=== PATIENT | female | born 2000 | race Caucasian/White ===

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

== ENCOUNTER → 2018-05-06 | Outpatient (REF) | payer OTHER ==
[~2018-05-06] MED LIST changes: +LORA10TA3 PO
== END ==
LOC: M LAB REF 15:30
PROVIDERS: ATTEND Physician Assistant
DX: J02.9 Acute pharyngitis, unspecified (principal)

== ENCOUNTER → 2018-05-07 | Outpatient (CLI) | payer OTHER ==
[2018-05-07 18:42] LABS: BASO % 0.5 % (0.0-1.0); EOS # 0.1 10^3/uL (0.0-0.50); EOS % 0.7 % (0.0-3.0); HEMATOCRIT 46.4 % (36.0-47.0); HEMOGLOBIN 14.9 g/dl (12.0-15.5); LYMPH # 1.9 10^3/uL (1.5-6.5); LYMPH % 25.8 % (24.0-44.0); MEAN CORPUSCULAR HEMOGLOBIN 27.4 pg (27.0-33.0); MEAN CORPUSCULAR HGB CONC 32.1 g/dl (32.0-36.5); MEAN CORPUSCULAR VOLUME 85.3 fl (80.0-96.0); MONO % 13.5 % (0.0-5.0); NEUTROPHILS # 4.3 10^3/uL (1.8-7.7); NEUTROPHILS % 59.2 % (36.0-66.0); PLATELET COUNT, AUTOMATED 219 10^3/uL (150-450); RED BLOOD COUNT 5.44 10^6/uL (4.00-5.40); WHITE BLOOD COUNT 7.3 10^3/uL (4.0-10.0)
[2018-05-10 00:07] LABS: EBV VIRAL CAPSID AG IgG >600.0 U/mL (0.0-17.9); EBV VIRAL CAPSID AG IgM <36.0 U/mL (0.0-35.9)
== END ==
LOC: M WUC 10:55
PROVIDERS: ATTEND Physician Assistant
DX: R53.83 Other fatigue (principal)

== ENCOUNTER → 2019-01-31 | Outpatient (REF) | payer OTHER | LOC: M LAB REF 09:22 | PROVIDERS: ATTEND Physician Assistant | DX: J02.9 Acute pharyngitis, unspecified (principal) ==

== ENCOUNTER 2019-05-19 18:26 | Emergency (ER) | payer OTHER ==
[~2019-05-19] VITALS: Ht 170.2 cm; Wt 93.3 kg
[2019-05-19 19:49] LABS: BASO # 0.1 10^3/uL (0.0-0.2); BASO % 0.5 % (0.0-1.0); EOS # 0.4 10^3/uL (0.0-0.5); EOS % 3.5 % (0.0-3.0); HEMATOCRIT 44.9 % (36.0-47.0); HEMOGLOBIN 15.5 g/dl (12.0-15.5); LYMPH # 4.3 10^3/uL (1.5-5.0); LYMPH % 34.7 % (24.0-44.0); MEAN CORPUSCULAR HEMOGLOBIN 28.6 pg (27.0-33.0); MEAN CORPUSCULAR HGB CONC 34.5 g/dl (32.0-36.5); MEAN CORPUSCULAR VOLUME 82.8 fl (80.0-96.0); MONO # 0.8 10^3/uL (0.0-0.8); MONO % 6.5 % (0.0-5.0); NEUTROPHILS # 6.8 10^3/uL (1.5-8.5); NEUTROPHILS % 54.5 % (36.0-66.0); PLATELET COUNT, AUTOMATED 330 10^3/uL (150-450); RED BLOOD COUNT 5.42 10^6/uL (4.00-5.40); WHITE BLOOD COUNT 12.5 10^3/uL (4.0-10.0)
[2019-05-19 20:50] LABS: HCG, SERUM QUALITATIVE NEGATIVE (NEGATIVE)
[2019-05-19 20:51] LABS: ALBUMIN 3.8 GM/DL (3.2-5.2); ALT/SGPT 55 U/L (12-78); BILIRUBIN,DIRECT 0.1 MG/DL (0.0-0.2); BILIRUBIN,TOTAL 0.6 MG/DL (0.2-1.0); BLOOD UREA NITROGEN 13 MG/DL (7-18); CALCIUM LEVEL 9.2 MG/DL (8.5-10.1); CARBON DIOXIDE LEVEL 28 MEQ/L (21-32); CHLORIDE LEVEL 107 MEQ/L (98-107); CREATININE FOR GFR 1.03 MG/DL (0.55-1.30); GLUCOSE, FASTING 69 MG/DL (70-100); LIPASE 169 U/L (73-393); POTASSIUM SERUM 4.2 MEQ/L (3.5-5.1); SODIUM LEVEL 141 MEQ/L (136-145); TOTAL PROTEIN 7.5 GM/DL (6.4-8.2)
[2019-05-19] MEDS ORDERED: ISOVUE-370 76% 100ML VIAL (Q9967) As Ordered ONE (21:30)
--- NOTE | 2019-05-19 22:09 | REPVR ---
PROCEDURE INFORMATION: Exam: CT Abdomen And Pelvis With Contrast Exam date and time: 05/19/2019 9:38 PM Age: 18 years old Clinical indication: Abdominal pain; Flank; Right lower quadrant (rlq); Additional info: Rlq pain TECHNIQUE: Imaging protocol: Computed tomography of the abdomen and pelvis with intravenous contrast. Axial, coronal and sagittal reformatted images were created and reviewed. Radiation optimization: All CT scans at this facility use at least one of these dose optimization techniques: automated exposure control; mA and/or kV adjustment per patient size (includes targeted exams where dose is matched to clinical indication); or iterative reconstruction. Contrast material: ISOVUE 370; Contrast volume: 100 ml; Contrast route: IV; COMPARISON: No relevant prior studies available. FINDINGS: Liver: Mild hepatomegaly. Diffuse hepatic steatosis. Gallbladder and bile ducts: No radiodense gallstones. No biliary ductal dilatation. Pancreas: Unremarkable. Spleen: Unremarkable. Adrenals: Unremarkable. Kidneys and ureters: No mass. No radiodense calculi. No hydronephrosis. Stomach and bowel: No bowel wall thickening. No obstruction. No pneumatosis. Appendix: Normal. Intraperitoneal space: Trace nonspecific free pelvic fluid, likely physiologic. No organized fluid collection. No free air. Vasculature: Unremarkable. No aneurysm. Lymph nodes: Small mesenteric lymph nodes, nonspecific in appearance. No pathologically enlarged lymph nodes. Bladder: Unremarkable. Reproductive: Unremarkable. Bones/joints: No acute osseous abnormality. Soft tissues: Unremarkable. IMPRESSION: 1. No CT evidence of acute intra-abdominal or pelvic pathology. 2. Additional findings, as above. Electronically signed by: Fred Yadav On 05/19/2019 22:09:10 PM
[2019-05-19] MEDS ORDERED: ONDA4TAB6 PO (22:25)
[2019-05-19 22:41] VITALS: BP 120/85
== END 2019-05-19 22:55 | disposition home or self-care (01) ==
LOC: M ED 18:26
DX: R10.31 Right lower quadrant pain (principal); F17.290 Nicotine dependence, other tobacco product, uncomplicated; J30.89 Other allergic rhinitis; Z91.040 Latex allergy status
CPT/HCPCS: 74177; 80048; 80076; 81001; 83690; 84703; 85025; 99284; Q9967

== ENCOUNTER → 2020-02-26 | Outpatient (REF) | payer OTHER ==
[~2020-02-26] MED LIST changes: +ONDA4TAB6 PO
== END ==
LOC: M SFHCWAGY 12:55
PROVIDERS: ATTEND Nurse Practitioner Women's Health
DX: Z11.3 Encounter for screening for infections with a predominantly sexual mode of transmission (principal); Z12.4 Encounter for screening for malignant neoplasm of cervix

== ENCOUNTER → 2020-09-25 | Outpatient (REF) | payer OTHER ==
[~2020-09-25] MED LIST changes: -CLIN150C14 PO; +CLIN150C15 PO
[2020-09-25 18:39] LABS: GC DNA AMPLIFICATION NEGATIVE (NEGATIVE)
== END ==
LOC: M SFHCWAGY 12:53
PROVIDERS: ATTEND Nurse Practitioner Women's Health
DX: Z11.3 Encounter for screening for infections with a predominantly sexual mode of transmission (principal)

== ENCOUNTER → 2021-01-14 | Outpatient (CLI) | payer OTHER ==
[~2021-01-14] MED LIST changes: -CLIN150C15 PO; +CLIN150C17 PO
[2021-01-14 16:02] LABS: LUTEINIZING HORMONE 4.4 mIU/mL; PROLACTIN 10.2 NG/ML; THYROID STIMULATING HORMONE 1.59 uIU/ML (0.358-3.740)
[2021-01-14 16:03] LABS: FOLLICLE STIMULATING HORMONE 7.5 mIU/mL
== END ==
LOC: M PLALAB 11:30
PROVIDERS: ATTEND Nurse Practitioner Women's Health
DX: N97.0 Female infertility associated with anovulation (principal)

== ENCOUNTER → 2021-01-21 | Outpatient (CLI) | payer OTHER ==
--- NOTE | 2021-01-21 10:14 | REP ---
INDICATION: INFERTILITY COMPARISON: None. TECHNIQUE: Transabdominal pelvic ultrasound followed by transvaginal examination for better evaluation of the endometrium and adnexa with color Doppler evaluation of the ovaries. FINDINGS: Bladder is unremarkable and measures 9.4 x 9.5 x 9.7 cm. Septated anteverted uterus measures 6.0 x 3.6 x 4.9 cm. The endometrial complex measures 8.5 mm thickness. Few small nabothian cysts are identified. Bilateral ovaries demonstrate multiple follicles measuring up to 11 mm on the right and 10 mm on the left. Right ovary measures 4.2 x 2.8 x 3.4 cm; R I = 0.60. Left ovary measures 3.3 x 2.6 x 3.8 cm; R I = 0.70. No pelvic fluid or adnexal mass lesion. IMPRESSION: Uterus has a septated appearance and is otherwise normal by ultrasound evaluation. Bilateral primarily subcentimeter follicles noted. <Electronically signed by Rodolfo Flood > 01/21/21 1011
== END ==
LOC: M WHC 07:33
PROVIDERS: ATTEND Nurse Practitioner Women's Health
DX: N97.0 Female infertility associated with anovulation (principal)

== ENCOUNTER → 2021-03-18 | Outpatient (REF) | payer OTHER ==
[2021-03-18 23:19] LABS: GC DNA AMPLIFICATION NEGATIVE (NEGATIVE)
== END ==
LOC: M SFHCWAGY 16:45
PROVIDERS: ATTEND Obstetrics & Gynecology
DX: Z12.4 Encounter for screening for malignant neoplasm of cervix (principal); Z11.3 Encounter for screening for infections with a predominantly sexual mode of transmission

== ENCOUNTER → 2022-07-13 | Outpatient (REF) | payer OTHER ==
[~2022-07-13] MED LIST changes: -MICR1TAB16 PO; +NORE1TAB86 PO
[2022-07-14 12:46] LABS: GC DNA AMPLIFICATION NEGATIVE (NEGATIVE)
== END ==
LOC: M PLALAB 11:52
PROVIDERS: ATTEND Obstetrics & Gynecology
DX: Z12.4 Encounter for screening for malignant neoplasm of cervix (principal)

== ENCOUNTER → 2022-10-22 | Outpatient (CLI) | payer OTHER | LOC: M LAB 10:34 | PROVIDERS: ATTEND Physician Assistant | DX: Z34.91 Encounter for supervision of normal pregnancy, unspecified, first trimester (principal) ==

== ENCOUNTER → 2022-12-16 | Outpatient (CLI) | payer OTHER ==
[2022-12-16 13:50] LABS: HEMATOCRIT 44.1 % (36.0-47.0); HEMOGLOBIN 15.1 g/dl (12.0-15.5); MEAN CORPUSCULAR HEMOGLOBIN 28.9 pg (27.0-33.0); MEAN CORPUSCULAR HGB CONC 34.2 g/dl (32.0-36.5); MEAN CORPUSCULAR VOLUME 84.5 fl (80.0-96.0); PLATELET COUNT, AUTOMATED 263 10^3/uL (150-450); RED BLOOD COUNT 5.22 10^6/uL (4.00-5.40); WHITE BLOOD COUNT 8.2 10^3/uL (4.0-10.0)
[2022-12-16 14:46] LABS: HIV 1&2 SCREEN NEGATIVE (NEGATIVE)
[2022-12-16 14:54] LABS: HEPATITIS C VIRUS ABY INDEX 0.04 INDEX (<0.8)
[2022-12-16 15:01] LABS: GC DNA AMPLIFICATION NEGATIVE (NEGATIVE)
== END ==
LOC: M PLALAB 08:59
PROVIDERS: ATTEND Advanced Practice Midwife
DX: Z34.81 Encounter for supervision of other normal pregnancy, first trimester (principal)

== ENCOUNTER → 2022-12-16 | Outpatient (REF) | payer OTHER | LOC: M PLALAB 08:21 | PROVIDERS: ATTEND Advanced Practice Midwife | DX: Z34.81 Encounter for supervision of other normal pregnancy, first trimester (principal) ==

== ENCOUNTER → 2023-02-01 | Outpatient (CLI) | payer OTHER | LOC: M WHC 14:33 | PROVIDERS: ATTEND Advanced Practice Midwife | DX: Z34.82 Encounter for supervision of other normal pregnancy, second trimester (principal); Z3A.19 19 weeks gestation of pregnancy ==

== ENCOUNTER → 2023-02-18 | Outpatient (CLI) | payer OTHER | LOC: M WHC 14:58 | PROVIDERS: ATTEND Advanced Practice Midwife | DX: O32.1XX0 Maternal care for breech presentation, not applicable or unspecified (principal); Z3A.21 21 weeks gestation of pregnancy ==

== ENCOUNTER → 2023-03-16 | Outpatient (CLI) | payer OTHER ==
[2023-03-16 17:33] LABS: HEMATOCRIT 40.1 % (36.0-47.0); HEMOGLOBIN 13.4 g/dl (12.0-15.5); MEAN CORPUSCULAR HEMOGLOBIN 28.5 pg (27.0-33.0); MEAN CORPUSCULAR HGB CONC 33.4 g/dl (32.0-36.5); MEAN CORPUSCULAR VOLUME 85.3 fl (80.0-96.0); PLATELET COUNT, AUTOMATED 237 10^3/uL (150-450); WHITE BLOOD COUNT 11.7 10^3/uL (4.0-10.0)
[2023-03-16 19:43] LABS: CHLAMYDIA DNA AMPLIFICATION NEGATIVE (NEGATIVE); GC DNA AMPLIFICATION NEGATIVE (NEGATIVE)
== END ==
LOC: M PLALAB 14:18
PROVIDERS: ATTEND Advanced Practice Midwife
DX: Z34.82 Encounter for supervision of other normal pregnancy, second trimester (principal)

== ENCOUNTER → 2023-03-22 | Outpatient (REF) | payer OTHER | LOC: M LAB REF 19:58 | PROVIDERS: ATTEND Physician Assistant | DX: R30.0 Dysuria (principal) ==

== ENCOUNTER → 2023-03-25 | Outpatient (CLI) | payer OTHER | LOC: M WHC 13:49 | PROVIDERS: ATTEND Obstetrics & Gynecology | DX: Z34.82 Encounter for supervision of other normal pregnancy, second trimester (principal) ==

== ENCOUNTER 2023-04-02 15:38 | Outpatient (CLI) | payer OTHER ==
[~2023-04-02] VITALS: Ht 170.2 cm; Wt 102.8 kg
[2023-04-02 15:57] VITALS: BP 143/79
[2023-04-02] MEDS ORDERED: PRENTAB9 PO (15:59)
[2023-04-02 16:58] LABS: APPEARANCE, URINE CLOUDY (CLEAR); BACTERIA, URINE AUTO 1+ (NEGATIVE); BILIRUBIN, URINE AUTO NEGATIVE (NEGATIVE); BLOOD, URINE BLOOD NEGATIVE (NEGATIVE); CALCIUM OXALATE CRYSTALS SMALL; COLOR, URINE YELLOW (YELLOW); GLUCOSE, URINE (UA) AUTO NEGATIVE (NEGATIVE); KETONE, URINE AUTO TRACE mg/dL (NEGATIVE); LEUKOCYTE ESTERASE, URINE AUTO NEGATIVE (NEGATIVE); MUCUS, URINE SMALL (NEGATIVE); NITRITE, URINE AUTO NEGATIVE (NEGATIVE); PROTEIN, URINE AUTO 1+ mg/dL (NEGATIVE); RBC, URINE AUTO 0 /HPF (0-3); SPECIFIC GRAVITY URINE AUTO 1.032 (1.002-1.035); SQUAMOUS EPITHELIAL CELL UR AU 14 /HPF (0-6); WBC, URINE AUTO 0 /HPF (0-3)
[2023-04-02] MEDS ORDERED: MACR100C43 PO (17:24)
== END 2023-04-02 17:25 | disposition home or self-care (01) ==
LOC: M LDO 15:38
PROVIDERS: ATTEND Specialist
DX: O26.893 Other specified pregnancy related conditions, third trimester (principal); R35.0 Frequency of micturition; Z3A.28 28 weeks gestation of pregnancy
CPT/HCPCS: 59025; 81001; 87086; G0463

== ENCOUNTER → 2023-05-26 | Outpatient (REF) | payer OTHER ==
[~2023-05-26] MED LIST changes: +MACR100C43 PO; +PRENTAB9 PO
== END ==
LOC: M SFHCWAGY 16:48
PROVIDERS: ATTEND Obstetrics & Gynecology
DX: Z36.89 Encounter for other specified antenatal screening (principal); Z3A.00 Weeks of gestation of pregnancy not specified

== ENCOUNTER 2023-06-02 01:48 | Outpatient (CLI) | payer OTHER ==
[~2023-06-02] VITALS: Ht 170.2 cm; Wt 104.2 kg
[2023-06-02 02:13] VITALS: BP 121/68
[2023-06-02] MEDS ORDERED: ONDANSETRON 4MG 2ML VIAL As Ordered ONE (02:42)
[2023-06-02] MEDS: LR 1,000 ML IV ONE ×2 (02:43→03:00)
[2023-06-02] MEDS: ONDANSETRON 4MG 2ML VIAL IV ONE (02:46)
[2023-06-02 02:59] LABS: HEMATOCRIT 43.7 % (36.0-47.0); HEMOGLOBIN 15.1 g/dl (12.0-15.5); MEAN CORPUSCULAR HEMOGLOBIN 28.4 pg (27.0-33.0); MEAN CORPUSCULAR HGB CONC 34.6 g/dl (32.0-36.5); MEAN CORPUSCULAR VOLUME 82.3 fl (80.0-96.0); PLATELET COUNT, AUTOMATED 211 10^3/uL (150-450); RED BLOOD COUNT 5.31 10^6/uL (4.00-5.40); WHITE BLOOD COUNT 15.2 10^3/uL (4.0-10.0)
[2023-06-02 03:08] LABS: ALBUMIN 2.9 G/DL (3.2-5.2); ALKALINE PHOSPHATASE 129 U/L (46-116); ALT/SGPT 15 U/L (7.0-40); AST/SGOT 22 U/L (<34); BILIRUBIN,TOTAL 0.6 MG/DL (0.3-1.2); BLOOD UREA NITROGEN 8 MG/DL (9-23); CALCIUM LEVEL 9.5 MG/DL (8.5-10.1); CARBON DIOXIDE LEVEL 18 MMOL/L (20-31); CHLORIDE LEVEL 107 MMOL/L (98-107); GLOMERULAR FILTRATION RATE > 60.0 (>60); GLUCOSE, FASTING 98 MG/DL (60-100); POTASSIUM SERUM 4.1 MMOL/L (3.5-5.1); SODIUM LEVEL 136 MMOL/L (136-145); TOTAL PROTEIN 6.9 G/DL (5.7-8.2)
[2023-06-02 03:48] VITALS: BP 134/85
== END 2023-06-02 03:47 | disposition home or self-care (01) ==
LOC: M LDO 01:48
PROVIDERS: ATTEND Advanced Practice Midwife
DX: O26.893 Other specified pregnancy related conditions, third trimester (principal); R11.0 Nausea; R25.2 Cramp and spasm; Z3A.36 36 weeks gestation of pregnancy
CPT/HCPCS: 59025; 80053; 81001; 85027; 87086; 96374; G0463; J2405

== ENCOUNTER 2023-06-17 14:49 | Inpatient (IN) | payer OTHER ==
[~2023-06-17] VITALS: Ht 170.2 cm; Wt 105.0 kg
[2023-06-17 15:05] VITALS: BP 130/78
[2023-06-17] MEDS ORDERED: HOME MED LIST COMPLETE! XX SCH (15:10)
[2023-06-17] MEDS ORDERED: METHYLERGONOVINE MALEATE 0.2MG/ML 1ML VIAL IM PRN (16:00)
[2023-06-17] MEDS ORDERED: TRANEXAMIC ACID INJection 1,000 MG in NS 100 ML IV PRN (16:00)
[2023-06-17] MEDS ORDERED: CARBOPROST TROMETHAMINE 250 MCG/ML AMP IM PRN (16:00)
[2023-06-17] MEDS ORDERED: OXYTOCIN DRIP 30 UNITS in IV 1 EA IV PRN (16:00)
[2023-06-17] MEDS ORDERED: LIDOCAINE 1% MDV 20ML VIAL INFIL PRN (16:00)
[2023-06-17] MEDS ORDERED: LR 1,000 ML IV SCH (16:00)
[2023-06-17] MEDS ORDERED: LACTATED RINGER'S 1000 ML IV STA (16:00)
[2023-06-17 16:18] VITALS: BP 118/66
[2023-06-17 16:32] LABS: HEMATOCRIT 41.7 % (36.0-47.0); HEMOGLOBIN 14.3 g/dl (12.0-15.5); MEAN CORPUSCULAR HEMOGLOBIN 28.1 pg (27.0-33.0); MEAN CORPUSCULAR HGB CONC 34.3 g/dl (32.0-36.5); MEAN CORPUSCULAR VOLUME 81.9 fl (80.0-96.0); PLATELET COUNT, AUTOMATED 227 10^3/uL (150-450); RED BLOOD COUNT 5.09 10^6/uL (4.00-5.40); WHITE BLOOD COUNT 11.8 10^3/uL (4.0-10.0)
[2023-06-17 18:52] VITALS: BP 120/65
== END 2023-06-17 19:05 | disposition home or self-care (01) | DRG 566 ==
LOC: M LDI 14:49
PROVIDERS: ADMIT Advanced Practice Midwife; ATTEND Advanced Practice Midwife
DX: O36.8131 Decreased fetal movements, third trimester, fetus 1 (principal); Z3A.38 38 weeks gestation of pregnancy

== ENCOUNTER 2023-06-27 04:14 | Outpatient (CLI) | payer OTHER ==
[~2023-06-27] VITALS: Ht 170.2 cm; Wt 107.1 kg
[2023-06-27 04:26] VITALS: BP 136/79
[2023-06-27 06:34] VITALS: BP 125/74
== END 2023-06-27 06:31 | disposition home or self-care (01) ==
LOC: M LDO 04:14
PROVIDERS: ATTEND Obstetrics & Gynecology
DX: O47.1 False labor at or after 37 completed weeks of gestation (principal); Z3A.40 40 weeks gestation of pregnancy
CPT/HCPCS: 59025; 76815; G0463

== ENCOUNTER 2023-06-27 23:13 | Inpatient (IN) | payer OTHER ==
[~2023-06-27] VITALS: Ht 170.2 cm; Wt 106.0 kg
[2023-06-27 23:20] VITALS: BP 130/86
[2023-06-27] MEDS ORDERED: METHYLERGONOVINE MALEATE 0.2MG/ML 1ML VIAL IM PRN (23:35)
[2023-06-27] MEDS ORDERED: CARBOPROST TROMETHAMINE 250 MCG/ML AMP IM PRN (23:35)
[2023-06-27] MEDS ORDERED: OXYTOCIN INJ 10UNITS/ML 1ML VIAL IM PRN (23:35)
[2023-06-27] MEDS ORDERED: LIDOCAINE 1% MDV 20ML VIAL INFIL PRN (23:35)
[2023-06-27] MEDS ORDERED: TRANEXAMIC ACID INJection 1,000 MG in NS 100 ML IV PRN (23:35)
[2023-06-27] MEDS ORDERED: OXYTOCIN DRIP 30 UNITS in IV 1 EA IV PRN (23:35)
[2023-06-27] MEDS: LACTATED RINGER'S 1000 ML IV STA (23:54)
[2023-06-28] VITALS (58 sets, daily range): BP systolic 101–203; BP diastolic 54–105
[2023-06-28 00:10] LABS: HEMATOCRIT 42.5 % (36.0-47.0); HEMOGLOBIN 14.5 g/dl (12.0-15.5); MEAN CORPUSCULAR HEMOGLOBIN 28.1 pg (27.0-33.0); MEAN CORPUSCULAR HGB CONC 34.1 g/dl (32.0-36.5); MEAN CORPUSCULAR VOLUME 82.4 fl (80.0-96.0); PLATELET COUNT, AUTOMATED 219 10^3/uL (150-450); RED BLOOD COUNT 5.16 10^6/uL (4.00-5.40); WHITE BLOOD COUNT 13.2 10^3/uL (4.0-10.0)
[2023-06-28] MEDS ORDERED: ePHEDrine SULFATE 25 MG/5 ML(5MG/ML) SYRINGE IVP PRN (00:35)
[2023-06-28] MEDS ORDERED: EPIDURAL/PCA KEYS XX PRN (00:35)
[2023-06-28] MEDS ORDERED: NALOXONE INJ 0.4MG/1ML VIAL IV PRN (00:35)
[2023-06-28] MEDS ORDERED: diphenhydrAMINE 50MG/ML VIAL IV PRN (00:35)
[2023-06-28] MEDS ORDERED: LR 500 ML IV PRN (00:35)
[2023-06-28] MEDS ORDERED: ONDANSETRON 4MG 2ML VIAL IV PRN (00:35)
[2023-06-28] MEDS: FENTANYL/ROPIVACAINE/NACL BAG 100 ML EPIDURAL SCH (00:56)
[2023-06-28] MEDS: LR 1,000 ML IV SCH (01:19)
[2023-06-28] MEDS: OXYTOCIN DRIP 30 UNITS in IV 1 EA IV SCH ×2 (08:22→19:50)
[2023-06-28] MEDS ORDERED: IBUPROFEN 600MG TAB PO PRN (19:50)
[2023-06-28] MEDS ORDERED: ANUSOL HC CREAM 30GM TOP PRN (19:50)
[2023-06-28] MEDS ORDERED: METHYLERGONOVINE MALEATE 0.2 MG TAB PO PRN (19:50)
[2023-06-28] MEDS ORDERED: RHO(D) IMMUNE GLOBULIN/MALTOSE 500MCG(2500IU)/2.2ML VIAL (WINRHO) IM SCH (19:50)
[2023-06-28] MEDS ORDERED: ACETAMINOPHEN TAB 650MG DOSE (2X325MG) PO PRN (19:50)
[2023-06-28] MEDS ORDERED: MOM 30ML SUSPENSION UDC PO PRN (19:50)
[2023-06-28] MEDS ORDERED: DOCUSATE SODIUM 100MG CAPSULE PO PRN (19:50)
[2023-06-28] MEDS: IBUPROFEN 800 MG TAB PO PRN (21:03)
[2023-06-28] MEDS: DIBUCAINE 1% OINTMENT 30GM TOP PRN (21:06)
[2023-06-29] MEDS: ACETAMINOPHEN 500 MG TAB PO PRN (05:16)
[2023-06-29 06:00] VITALS: BP 121/69; O2SAT 97
[2023-06-29] MEDS: PRENATAL VITAMINS CHEWABLE TABLET PO SCH (09:09)
[2023-06-29 18:00] VITALS: BP 114/66; O2SAT 98
[2023-06-30 05:56] VITALS: BP 129/68; O2SAT 99
[2023-06-30] MEDS: MEASLES,MUMPS,RUBELLA VACCINE INJ (MMR-II) SC.IMMUN ONE (09:00)
[2023-06-30] MEDS ORDERED: COLA100C5 PO (12:12)
[2023-06-30] MEDS ORDERED: ACET-683 PO (12:12)
[2023-06-30] MEDS ORDERED: IBUP-1022 PO (12:12)
== END 2023-06-30 16:08 | disposition home or self-care (01) | DRG 560 ==
LOC: M LDO 23:13 → M LDI 23:29 → M OBS 06-28 21:01
PROVIDERS: ADMIT Advanced Practice Midwife; ATTEND Advanced Practice Midwife
PROC: 10E0XZZ Delivery of Products of Conception, External Approach (ICD-10-PCS; principal; 2023-06-28)
PROC: 0HQ9XZZ Repair Perineum Skin, External Approach (ICD-10-PCS; 2023-06-28)
DX: O48.0 Post-term pregnancy (principal); O70.0 First degree perineal laceration during delivery; Z37.0 Single live birth; Z3A.40 40 weeks gestation of pregnancy; Z91.040 Latex allergy status

== ENCOUNTER 2023-09-15 11:39 | Emergency (ER) | payer OTHER ==
[~2023-09-15] VITALS: Ht 170.2 cm; Wt 95.0 kg
[~2023-09-15 11:39] MED LIST changes: +ACET-683 PO; +COLA100C5 PO; +ONDA-282 PO; -ONDA4TAB6 PO
[2023-09-15] MEDS ORDERED: SERT25TA21 (11:47)
[2023-09-15 12:24] LABS: BASO # 0.1 10^3/uL (0.0-0.2); BASO % 0.5 % (0.0-1.0); EOS # 0.3 10^3/uL (0.0-0.5); EOS % 2.6 % (0.0-3.0); HEMATOCRIT 45.5 % (36.0-47.0); HEMOGLOBIN 15.5 g/dl (12.0-15.5); LYMPH # 3.2 10^3/uL (1.5-5.0); LYMPH % 32.8 % (24.0-44.0); MEAN CORPUSCULAR HEMOGLOBIN 28.2 pg (27.0-33.0); MEAN CORPUSCULAR HGB CONC 34.1 g/dl (32.0-36.5); MEAN CORPUSCULAR VOLUME 82.7 fl (80.0-96.0); MONO # 0.5 10^3/uL (0.0-0.8); MONO % 4.9 % (2.0-8.0); NEUTROPHILS # 5.7 10^3/uL (1.5-8.5); NEUTROPHILS % 58.9 % (36.0-66.0); PLATELET COUNT, AUTOMATED 293 10^3/uL (150-450); WHITE BLOOD COUNT 9.7 10^3/uL (4.0-10.0)
[2023-09-15 12:47] LABS: LIPASE 46 U/L (12-53)
[2023-09-15 12:49] LABS: ALBUMIN 3.9 G/DL (3.2-5.2); ALKALINE PHOSPHATASE 80 U/L (46-116); ALT/SGPT 40 U/L (7.0-40); AST/SGOT 12 U/L (<34); BILIRUBIN,DIRECT 0.2 MG/DL (<0.4); BILIRUBIN,TOTAL 0.7 MG/DL (0.3-1.2); BLOOD UREA NITROGEN 11 MG/DL (9-23); CALCIUM LEVEL 9.9 MG/DL (8.5-10.1); CARBON DIOXIDE LEVEL 24 MMOL/L (20-31); CHLORIDE LEVEL 108 MMOL/L (98-107); CREATININE FOR GFR 0.59 MG/DL (0.55-1.30); GLOMERULAR FILTRATION RATE > 60.0 (>60); GLUCOSE, FASTING 117 MG/DL (60-100); POTASSIUM SERUM 4.1 MMOL/L (3.5-5.1); SODIUM LEVEL 141 MMOL/L (136-145); TOTAL PROTEIN 7.2 G/DL (5.7-8.2)
[2023-09-15 13:09] LABS: HCG, SERUM QUALITATIVE NEGATIVE (NEGATIVE)
[2023-09-15] MEDS: ONDANSETRON 4MG 2ML VIAL IV ONE (13:59)
[2023-09-15] MEDS: KETOROLAC 30 MG/ML 1ML VIAL IV ONE (14:00)
[2023-09-15 15:18] VITALS: BP 115/69; TEMP 97.5; O2SAT 99
== END 2023-09-15 15:33 | disposition home or self-care (01) ==
LOC: M ED 11:39
DX: N20.0 Calculus of kidney (principal); R16.2 Hepatomegaly with splenomegaly, not elsewhere classified; F41.9 Anxiety disorder, unspecified; Z97.5 Presence of (intrauterine) contraceptive device; J30.89 Other allergic rhinitis; Z79.899 Other long term (current) drug therapy; Z91.040 Latex allergy status
CPT/HCPCS: 74176; 76376; 76830; 76856; 80048; 80076; 81001; 83690; 84703; 85025; 87086; 93976; 96374; 96375; 99284; J1885; J2405

== ENCOUNTER → 2023-09-26 | Outpatient (REF) | payer OTHER ==
[~2023-09-26] MED LIST changes: +SERT25TA21
== END ==
LOC: M PLALAB 17:36
PROVIDERS: ATTEND Obstetrics & Gynecology
DX: Z12.4 Encounter for screening for malignant neoplasm of cervix (principal); R87.615 Unsatisfactory cytologic smear of cervix

== ENCOUNTER → 2024-09-26 | Outpatient (REF) | payer OTHER ==
[~2024-09-26] MED LIST changes: +NORE-30 PO; -NORE1TAB86 PO
[2024-09-28 14:22] LABS: HPV APTIMA Not Detected (Not Detected)
== END ==
LOC: M SFHCWAGY 15:17
PROVIDERS: ATTEND Obstetrics & Gynecology
DX: Z12.4 Encounter for screening for malignant neoplasm of cervix (principal); R87.610 Atypical squamous cells of undetermined significance on cytologic smear of cervix (ASC-US)